=== PATIENT | male | born 1970 | race African-American/Black ===

== ENCOUNTER 2019-06-29 16:25 | Emergency (ER) | payer SELFPAY | END 2019-06-29 17:57 | disposition home or self-care (01) | LOC: ERS 16:25 | DX: R19.7 Diarrhea, unspecified (principal); E10.9 Type 1 diabetes mellitus without complications; Z79.899 Other long term (current) drug therapy | CPT/HCPCS: 99283 ==

== ENCOUNTER 2019-11-29 19:03 | Emergency (ER) | payer BC, SELFPAY ==
[2019-11-29 19:59] LABS: #Basophils 0.1 thou/uL (0.0-0.2); #Monocytes 0.4 thou/uL (0.11-0.59); #Neutrophils 2.7 thou/uL (1.40-6.50); %Eosinophils 0.7 % (0.0-10.0); %Lymphocytes 38.4 % (21.0-51.0); %Monocytes 7.4 % (0.0-10.0); %Neutrophils 52.5 % (42.0-75.0); Hemoglobin 13.5 g/dL (14.0-18.0); Mean Corpuscular HGB CONC 32.8 g/dL (32.0-36.0); Mean Corpuscular Volume 91.3 fL (78.0-98.0); Mean Platelet Volume 7.3 fL (7.4-10.4); Platelet Count 235 thou/uL (130-400); RBC Distribution Width 12.6 % (11.5-14.5); White Blood Cell (WBC) Count 5.2 thou/uL (4.8-10.8)
[2019-11-29 20:21] LABS: ALT (SGPT) 21 U/L (8-55); AST (SGOT) 21 U/L (5-34); Albumin 4.5 g/dL (3.5-5.0); Alkaline Phosphatase 76 U/L (40-110); Anion Gap 15 mmol/L (10-20); BUN (Urea Nitrogen) 58 mg/dL (8.9-20.6); Bilirubin, Total 0.5 mg/dL (0.2-1.2); Calc. Creatinine Clearance 0 mL/min (70-130); Calcium 9.9 mg/dL (7.8-10.44); Carbon Dioxide 27 mmol/L (22-29); Chloride 96 mmol/L (98-107); Estimated GFR-MDRD 25; Glucose 194 mg/dL (70-105); Protein, Total 8.5 g/dL (6.0-8.3); Sodium 134 mmol/L (136-145)
== END 2019-11-29 21:10 | disposition home or self-care (01) ==
LOC: ERS 19:03
DX: I12.9 Hypertensive chronic kidney disease with stage 1 through stage 4 chronic kidney disease, or unspecified chronic kidney disease (principal); E11.22 Type 2 diabetes mellitus with diabetic chronic kidney disease; N18.9 Chronic kidney disease, unspecified; R42 Dizziness and giddiness; Z79.899 Other long term (current) drug therapy
CPT/HCPCS: 80053; 84484; 85025; 93005; 96360

== ENCOUNTER 2020-04-08 20:47 | Emergency (ER) | payer BC ==
[2020-04-08 21:22] LABS: #Lymphocytes 1.8 thou/uL (1.20-3.40); #Monocytes 0.4 thou/uL (0.11-0.59); %Basophils 0.2 % (0.0-1.0); %Eosinophils 0.6 % (0.0-10.0); %Monocytes 6.9 % (0.0-10.0); %Neutrophils 57.3 % (42.0-75.0); Mean Corpuscular HGB CONC 31.9 g/dL (32.0-36.0); Mean Corpuscular Hemoglobin 28.5 pg (27.0-31.0); Mean Corpuscular Volume 89.6 fL (78.0-98.0); Platelet Count 198 thou/uL (130-400); Red Blood Cell (RBC) Count 4.19 mill/uL (4.70-6.10); White Blood Cell (WBC) Count 5.2 thou/uL (4.8-10.8)
[2020-04-08 21:51] LABS: ALT (SGPT) 25 U/L (8-55); AST (SGOT) 27 U/L (5-34); Albumin 4.2 g/dL (3.5-5.0); Alkaline Phosphatase 82 U/L (40-110); Anion Gap 12 mmol/L (10-20); BUN (Urea Nitrogen) 16 mg/dL (8.9-20.6); Bilirubin, Total 0.4 mg/dL (0.2-1.2); Calc. Creatinine Clearance 0 mL/min (70-130); Calcium 9.2 mg/dL (7.8-10.44); Carbon Dioxide 24 mmol/L (22-29); Chloride 105 mmol/L (98-107); Globulin 3.6 g/dL (2.4-3.5); Glucose 125 mg/dL (70-105); Lipase 20 U/L (8-78); Potassium 4.4 mmol/L (3.5-5.1); Protein, Total 7.8 g/dL (6.0-8.3); Sodium 137 mmol/L (136-145)
--- NOTE | 2020-04-08 22:50 | RAD ---
PORTABLE CHEST: 04/08/20 PROVIDED CLINICAL HISTORY: Hypertension. FINDINGS: Comparison 01/21/14. The cardiac and mediastinal silhouette is within normal limits. No focal consolidation, pleural fluid or pneumothorax apparent. IMPRESSION: No evidence for an acute cardiopulmonary process. POS: [facility]
== END 2020-04-08 22:46 | disposition home or self-care (01) ==
LOC: ERS 20:47
DX: I10 Essential (primary) hypertension (principal); E10.9 Type 1 diabetes mellitus without complications; Z79.899 Other long term (current) drug therapy
CPT/HCPCS: 36415; 71045; 80053; 83690; 84484; 85025; 93005

== ENCOUNTER 2024-02-04 02:41 | Inpatient (IN) | payer OTHER, SELFPAY ==
[2024-02-04] MEDS ORDERED: hydrALAZINE 20 MG/ML VIAL ONE ×2 (03:06→04:04)
[2024-02-04 03:10] LABS: #Basophils Less than 0.03 10x3/uL (0.0-0.2); #Eosinophils Less than 0.03 10x3/uL (0.0-0.7); %Basophils 0.2 % (0.0-1.0); %Eosinophils 0.3 % (0.0-10.0); %Lymphocytes 28.3 % (21.0-51.0); %Monocytes 7.2 % (0.0-10.0); %Neutrophils 63.5 % (42.0-75.0); Hematocrit 42.8 % (42.0-52.0); Hemoglobin 13.4 g/dL (14.0-18.0); Mean Corpuscular HGB CONC 31.3 g/dL (32.0-36.0); Mean Corpuscular Hemoglobin 27.7 pg (27.0-31.0); Mean Corpuscular Volume 88.6 fL (78.0-98.0); Mean Platelet Volume 10.8 fL (7.4-10.4); Platelet Count 175 10x3/uL (130-400); RBC Distribution Width 13.5 % (11.5-14.5); Red Blood Cell (RBC) Count 4.83 mill/uL (4.70-6.10)
[2024-02-04 03:29] LABS: Troponin I 0.028 ng/mL (< 0.028)
[2024-02-04 03:30] LABS: ALT (SGPT) 21 U/L (8-55); AST (SGOT) 18 U/L (5-34); Albumin 3.6 g/dL (3.5-5.0); Alkaline Phosphatase 109 U/L (40-110); Anion Gap 14 mmol/L (10-20); BUN (Urea Nitrogen) 17 mg/dL (8.4-25.7); Bilirubin, Total 0.3 mg/dL (0.2-1.2); Calc. Creatinine Clearance 0 mL/min (70-130); Calcium 9.6 mg/dL (7.8-10.44); Carbon Dioxide 25 mmol/L (22-29); Chloride 102 mmol/L (98-107); Estimated GFR 64; Globulin 4.6 g/dL (2.4-3.5); Glucose 444 mg/dL (70-105); Potassium 4.3 mmol/L (3.5-5.1); Protein, Total 8.2 g/dL (6.0-8.3); Sodium 137 mmol/L (136-145)
[2024-02-04 07:06] VITALS: BMI 33.5
[2024-02-04] MEDS ORDERED: Dextrose 5% in Water 1,000 ML IV PRN (08:22)
[2024-02-04] MEDS ORDERED: Dextrose 50% Abboject 50 ML SYRINGE SLOW IVP PRN (08:22)
[2024-02-04] MEDS ORDERED: Glucagon 1 MG/ML KIT IM PRN (08:22)
[2024-02-04] MEDS ORDERED: Pioglitazone HCl 45 MG TAB PO SCH (09:00)
[2024-02-04] MEDS ORDERED: Non-Formulary Item 1 EACH (Lisinopril [Lisinopril] 40 MG Tablet) PO SCH (09:00)
[2024-02-04] MEDS ORDERED: Amlodipine 5 MG TAB PO SCH (09:00)
[2024-02-04] MEDS ORDERED: Rosuvastatin 10 MG TAB PO SCH (09:00)
[2024-02-04] MEDS: Lisinopril 20 MG TAB PO SCH (09:34)
[2024-02-04] MEDS: Famotidine 20 MG TAB PO SCH (09:34)
[2024-02-04] MEDS: Pioglitazone HCl 45 MG TAB PO SCH (09:34)
[2024-02-04] MEDS: Rosuvastatin 10 MG TAB PO SCH (09:34)
[2024-02-04] MEDS: Amlodipine 5 MG TAB PO SCH (09:34)
[2024-02-04] MEDS: Enoxaparin 40 MG (0.4 mL) SYRINGE SC SCH (09:35)
[2024-02-04] MEDS: Acetaminophen 325 MG TAB PO PRN (12:49)
[2024-02-04] MEDS: Insulin Regular, Human 100 UNIT/ML 10 ML VIAL SC PRN (12:53)
[2024-02-04 17:18] LABS: Hemoglobin A1c 10.2 % (4.0-6.0)
[2024-02-04 17:28] LABS: Troponin I 0.061 ng/mL (< 0.028)
[2024-02-04] MEDS ORDERED: hydrALAZINE 20 MG/ML VIAL SLOW IVP PRN (18:07)
[2024-02-04] MEDS: hydrALAZINE 20 MG/ML VIAL SLOW IVP SCH (18:27)
[2024-02-04 21:57] LABS: Troponin I 0.062 ng/mL (< 0.028)
[2024-02-05 05:06] LABS: Anion Gap 12 mmol/L (10-20); BUN (Urea Nitrogen) 13 mg/dL (8.4-25.7); Calc. Creatinine Clearance 109 mL/min (70-130); Calcium 9.5 mg/dL (7.8-10.44); Carbon Dioxide 23 mmol/L (22-29); Chloride 102 mmol/L (98-107); Estimated GFR 86; Glucose 231 mg/dL (70-105); Potassium 3.7 mmol/L (3.5-5.1); Sodium 133 mmol/L (136-145)
[2024-02-05] MEDS: Aspirin 81 mg Enteric Coated Tablet PO SCH (07:37)
[2024-02-05] MEDS: hydrALAZINE 25 MG TAB PO SCH (09:36)
[2024-02-05] MEDS: Amlodipine 5 MG TAB PO SCH (09:36)
[2024-02-05] MEDS: Insulin Glargine 30 UNITS/0.3 ML VIAL SC SCH (09:36)
[2024-02-05 11:32] LABS: Cardiac Risk 6.3 (Less than 4.5)
[2024-02-05] MEDS: Insulin Lispro 100 UNIT/ML 10 ML VIAL SC SCH ×2 (17:22→17:26)
[2024-02-05] MEDS: Insulin Lispro 100 UNIT/ML 10 ML VIAL SC PRN (21:31)
[2024-02-05] MEDS ORDERED: HumaLOG 300 UNITS/3 ML VIAL SC PRN (21:39)
[2024-02-06 04:16] LABS: #Basophils Less than 0.03 10x3/uL (0.0-0.2); %Basophils 0.2 % (0.0-1.0); %Eosinophils 0.6 % (0.0-10.0); %Lymphocytes 35.8 % (21.0-51.0); %Monocytes 7.9 % (0.0-10.0); %Neutrophils 55.1 % (42.0-75.0); Hematocrit 40.5 % (42.0-52.0); Hemoglobin 12.7 g/dL (14.0-18.0); Mean Corpuscular HGB CONC 31.4 g/dL (32.0-36.0); Mean Corpuscular Hemoglobin 27.7 pg (27.0-31.0); Mean Corpuscular Volume 88.2 fL (78.0-98.0); Mean Platelet Volume 10.5 fL (7.4-10.4); Platelet Count 193 10x3/uL (130-400); RBC Distribution Width 13.7 % (11.5-14.5); Red Blood Cell (RBC) Count 4.59 mill/uL (4.70-6.10)
[2024-02-06 04:31] LABS: Anion Gap 11 mmol/L (10-20); BUN (Urea Nitrogen) 14 mg/dL (8.4-25.7); Calc. Creatinine Clearance 118 mL/min (70-130); Calcium 9.4 mg/dL (7.8-10.44); Carbon Dioxide 25 mmol/L (22-29); Chloride 102 mmol/L (98-107); Estimated GFR 93; Glucose 184 mg/dL (70-105); Potassium 3.5 mmol/L (3.5-5.1); Sodium 134 mmol/L (136-145)
[2024-02-06] MEDS: Insulin Lispro 100 UNIT/ML 10 ML VIAL SC PRN (06:27)
[2024-02-06] MEDS: Rosuvastatin 20 MG TAB PO SCH (08:43)
[2024-02-06] MEDS: Amlodipine 10 MG TAB PO SCH (08:44)
[2024-02-06] MEDS: Insulin Glargine 30 UNITS/0.3 ML VIAL SC SCH (08:45)
[2024-02-06] MEDS: Hydrochlorothiazide 25 MG TAB PO SCH (11:20)
[2024-02-06 14:10] VITALS: BP 192/103; TEMP 98.2
== END 2024-02-06 14:59 | disposition home or self-care (01) | DRG 305 ==
LOC: ERS 02:41 → 2NO 05:55 → OBSVTOIN 02-05 13:56
PROVIDERS: ADMIT Student in an Organized Health Care Education/Training Program; ATTEND Internal Medicine
PROC: 4A00X4Z Measurement of Central Nervous Electrical Activity, External Approach (ICD-10-PCS; principal; 2024-02-05)
DX: I16.1 Hypertensive emergency (principal); G36.9 Acute disseminated demyelination, unspecified; G93.89 Other specified disorders of brain; I10 Essential (primary) hypertension; E78.5 Hyperlipidemia, unspecified; E11.9 Type 2 diabetes mellitus without complications; Z91.041 Radiographic dye allergy status; Z91.013 Allergy to seafood; I16.0 Hypertensive urgency
CPT/HCPCS: 36415; 36416; 70450; 70551; 71045; 80048; 80053; 80061; 83036; 84443; 84484; 85025; 93005; 93306; 93880; 94760; 95711; 96372; 96374; 96375; 96376; G0378; J0360; J1650; J1815

== ENCOUNTER 2025-03-31 15:49 | Emergency (ER) | payer OTHER ==
[2025-03-31 17:15] LABS: #Basophils Less than 0.03 10x3/uL (0.0-0.2); #Eosinophils 0.10 10x3/uL (0.0-0.7); #Monocytes 0.39 10x3/uL (0.11-0.59); #Neutrophils 3.12 10x3/uL (1.40-6.50); %Basophils 0.2 % (0.0-1.0); %Eosinophils 1.9 % (0.0-10.0); %Lymphocytes 29.5 % (21.0-51.0); %Monocytes 7.6 % (0.0-10.0); %Neutrophils 60.6 % (42.0-75.0); Hematocrit 36.9 % (42.0-52.0); Hemoglobin 11.0 g/dL (14.0-18.0); Mean Corpuscular Hemoglobin 24.3 pg (27.0-31.0); Mean Corpuscular Volume 81.5 fL (78.0-98.0); Platelet Count 188 10x3/uL (130-400); Red Blood Cell (RBC) Count 4.53 mill/uL (4.70-6.10); White Blood Cell (WBC) Count 5.15 10x3/uL (4.8-10.8)
[2025-03-31 17:31] LABS: ALT (SGPT) 19 U/L (Less than 45); AST (SGOT) 20 U/L (11-34); Albumin 3.9 g/dL (3.1-4.5); Alkaline Phosphatase 97 U/L (40-110); Anion Gap 12 mmol/L (10-20); BUN (Urea Nitrogen) 18 mg/dL (8.4-25.7); Bilirubin, Total 0.3 mg/dL (0.3-1.2); Calc. Creatinine Clearance 0 mL/min (70-130); Calcium 10.0 mg/dL (7.8-10.44); Carbon Dioxide 25 mmol/L (22-29); Chloride 103 mmol/L (98-107); Globulin 4.0 g/dL (2.4-3.5); Glucose 187 mg/dL (70-105); Potassium 4.0 mmol/L (3.5-5.1); Sodium 136 mmol/L (136-145)
== END 2025-03-31 20:28 | disposition home or self-care (01) ==
LOC: ERS 15:49
DX: M79.89 Other specified soft tissue disorders (principal); E10.9 Type 1 diabetes mellitus without complications; I10 Essential (primary) hypertension; Z79.84 Long term (current) use of oral hypoglycemic drugs; Z79.899 Other long term (current) drug therapy
CPT/HCPCS: 36415; 80053; 83605; 85025; 86141; 99283